=== PATIENT | male | born 1995 | race Caucasian/White ===

== ENCOUNTER 2020-06-27 00:53 | Emergency (ER) | payer MEDICAID ==
[~2020-06-27] VITALS: Ht 142.2 cm; Wt 57.6 kg
--- NOTE | 2020-06-27 01:37 | NUR ---
dr. humphries at bedside for eval.
[2020-06-27] MEDS ORDERED: ONDANSETRON HCL/PF 4 MG/2 ML VIAL ONE (01:41)
[2020-06-27] MEDS ORDERED: MORPHINE SULFATE INJ 4 MG/ML DISP.SYRIN ONE (01:42)
[2020-06-27 02:00] LABS: BASOPHILS # (AUTO) 0.2 /CMM (0.0-0.2); EOSINOPHILS % (AUTO) 4.5 % (0.0-6.0); HEMATOCRIT 52 % (39-51); HEMOGLOBIN 17.2 g/dL (13.5-17.5); LYMPHOCYTES # (AUTO) 1.4 /CMM (0.8-4.8); MEAN CORPUSCULAR HGB CONC 33 g/dl (31.0-36.0); MEAN CORPUSCULAR VOLUME 90 fL (80-96); MONOCYTES # (AUTO) 0.4 /CMM (0.1-1.30); MONOCYTES % (AUTO) 4.2 % (2.0-12.0); NEUTROPHILS # (AUTO) 6.4 /CMM (1.8-8.9); NEUTROPHILS % (AUTO) 73.3 % (43.0-81.0); PLATELET COUNT (AUTO) 243 /CMM (150-450); RED BLOOD CELL COUNT(AUTO) 5.76 MIL/uL (4.5-6.0); WHITE BLOOD COUNT (AUTO) 8.7 K/uL (4.3-11.0)
[2020-06-27] MEDS ORDERED: MORPHINE SULFATE INJ 2 MG/ML DISP.SYRIN IV ONE (02:00)
[2020-06-27] MEDS ORDERED: IV NS 0.9% 1,000 ML BAG IV ONE (02:00)
[2020-06-27] MEDS ORDERED: ONDANSETRON HCL/PF 4 MG/2 ML VIAL IVP ONE (02:00)
[2020-06-27 02:02] LABS: APPEARANCE,URINE CLEAR (CLEAR); BILIRUBIN,URINE NEGATIVE (NEGATIVE); BLOOD, URINE NEGATIVE Ery/uL (NEGATIVE); COLOR,URINE YELLOW (YELLOW); KETONES,URINE NEGATIVE (NEGATIVE); LEUKOCYTE ESTERASE ,URINE NEGATIVE (NEGATIVE); NITRITE, URINE NEGATIVE (NEGATIVE); PH,URINE 6.5 (5.0-8.0); PROTEIN,URINE NEGATIVE (NEGATIVE); UGLUCOSE NEGATIVE (NEGATIVE); UROBILINOGEN,URINE 0.2 EU/dL (0.2)
[2020-06-27 02:12] LABS: CALCIUM, SERUM 9.3 mg/dL (8.5-10.1); POTASSIUM 3.6 mmol/L (3.5-5.1)
[2020-06-27 02:18] LABS: ALBUMIN 4.6 g/dL (3.4-5.0); BILIRUBIN,DIRECT 0.1 mg/dL (0.0-0.2); BILIRUBIN,TOTAL 0.5 mg/dL (0.2-1.0); TOTAL PROTEIN, SERUM 8.3 g/dL (6.4-8.2)
[2020-06-27] MEDS ORDERED: FAMOTIDINE/PF INJ 20 MG/2 ML VIAL IV ONE ×2 (02:30→02:52)
[2020-06-27] MEDS ORDERED: MAG HYDROX/AL HYDROX/SIMETH 30 ML UDC PO ONE (02:30)
[2020-06-27] MEDS ORDERED: LIDOCAINE VISCOUS 2% UD 15 ML UDC MM ONE (02:30)
--- NOTE | 2020-06-27 02:42 | NUR ---
called alejandro for follow up ct abd, per karen will be read next
[2020-06-27] MEDS ORDERED: MAG HYDROX/AL HYDROX/SIMETH 30 ML UDC ONE (02:51)
[2020-06-27] MEDS ORDERED: LIDOCAINE VISCOUS 2% UD 15 ML UDC ONE (02:51)
--- NOTE | 2020-06-27 03:11 | NUR ---
Patient discharged to home in stable condition. Written and verbal after care instructions given. Patient verbalizes understanding of instruction. IV removed. Catheter intact and site benign. Pressure and 4x4 applied to site. No bleeding noted.
[2020-06-27 04:27] VITALS: BP 142/88
== END 2020-06-27 03:11 | disposition home or self-care (01) ==
LOC: ER 00:56
DX: R10.33 Periumbilical pain (principal); R10.13 Epigastric pain; R11.0 Nausea
CPT/HCPCS: 36415; 74176; 80048; 80076; 81001; 83690; 85025; 96361; 96374; 96375; 99284; J2270; J2405; J3490; J7030; 81000-TC